=== PATIENT | female | born 1980 | race Two or more races ===

== ENCOUNTER 2020-12-09 18:29 | Emergency (ER) | payer SELFPAY ==
[~2020-12-09] VITALS: Ht 157.5 cm; Wt 65.0 kg
--- NOTE | 2020-12-09 19:55 | NUR ---
PELVIC CRAMPING/VAGINAL BLEEDING (7-8 PADS/DAY)-HAS BEEN BLEEDING SINCE SEPTEMBER ALSO WITH HEADACHE/REPORTED FEVERS SEEN A RENOWN/ OUTPATIENT PARKING RAMP ATTENDANT AND DX WITH FIBROID PARKING RAMP ATTENDANT: STACEY TREJO (SAW THIS LAST THURSDAY) VSS ALTHOUGH POTENTIALLY PALE
[2020-12-09] MEDS ORDERED: OXYcodone/APAP 5/325MG TABLET PO ONE (20:00)
[2020-12-09] MEDS ORDERED: SODIUM CHLORIDE FLUSH 10ML SYR IVF ONE (20:30)
[2020-12-09] MEDS ORDERED: SODIUM CHLORIDE 0.9% 1,000ML IVBOLUS ONE (20:30)
[2020-12-09 20:49] LABS: BASOPHILS % (AUTO) 1 % (0-1); EOSINOPHILS % (AUTO) 3 % (1-7); LYMPHOCYTES % (AUTO) 33 % (22-44); MEAN CORPUSCULAR HEMOGLOBIN 30.6 pg (27.0-34.8); MEAN CORPUSCULAR HGB CONC 34.5 g/dL (32.4-35.8); MEAN PLATELET VOLUME 10.9 fL (7.4-10.4); MONOCYTES % (AUTO) 8 % (2-9); NEUTROPHILS % (AUTO) 55 % (42-75); PLATELET COUNT 210 x10^3/uL (130-400); RED BLOOD COUNT 3.79 x10^6/uL (3.82-5.3); RED CELL DISTRIBUTION WIDTH 12.8 % (9.6-15.2)
[2020-12-09 20:58] LABS: ALANINE AMINOTRANSFERASE 71 U/L (12-78); ALBUMIN 3.3 g/dL (3.4-5.0); CALCIUM 9.2 mg/dL (8.5-10.1); CREATININE 0.57 mg/dL (0.55-1.02)
[2020-12-09 21:00] LABS: ALKALINE PHOSPHATASE 68 U/L (45-117); BILIRUBIN,TOTAL 0.2 mg/dL (0.2-1.0)
[2020-12-09 21:07] LABS: ANION GAP 5 mmol/L (5-15)
[2020-12-09 21:08] LABS: CHLORIDE 105 mmol/L (98-107)
[2020-12-09] MEDS ORDERED: OXYcodone/APAP 5/325MG TABLET ONE (21:14)
[2020-12-09 22:03] VITALS: BP 116/47
== END 2020-12-09 22:06 | disposition home or self-care (01) ==
LOC: ED 20:00
DX: N93.8 Other specified abnormal uterine and vaginal bleeding (principal); R10.31 Right lower quadrant pain; R10.32 Left lower quadrant pain; D25.1 Intramural leiomyoma of uterus; R42 Dizziness and giddiness
CPT/HCPCS: 36415; 76830; 80053; 85025; 96360; 96361; 99284; J7030